=== PATIENT | male | born 1965 | race Caucasian/White ===

== ENCOUNTER 2016-09-18 17:40 | Emergency (ER) | payer SELFPAY ==
[2016-09-18 17:49] VITALS: BP 135/67; PULSE 62; TEMP 98; BMI 27.1
[2016-09-18] MEDS ORDERED: PANTOPRAZOLE SODIUM 40 MG in SODIUM CHLORIDE 100 ML IVPB ONE (20:56)
[2016-09-18] MEDS ORDERED: FAMOTIDINE 20 MG/50 ML IVPB 50 ML IVPB ONE ×2 (20:56→21:15)
[2016-09-18] MEDS ORDERED: SODIUM CHLORIDE 0.9% 1000 ML INFUS.BAG IV ONE (20:56)
--- NOTE | 2016-09-18 21:10 | PDOC ---
History of Present Illness - General Chief Complaint: Pain Stated Complaint: ABDOMINAL PAIN Time Seen by Provider: 09/18/16 20:36 - History of Present Illness Initial Comments: 09/18/16 20:57 CHIEF COMPLAINT: abdominal pain HISTORY OF PRESENT ILLNESS: 51 yo M with hx of GERD presents to ED with intermittent abdominal pain x 2 weeks. Patient states that he having epigastric discomfort that "is there one day, and gone the other" and has been taking TUMS and Mylanta almost daily with no relief. He denies any nausea or vomiting but states that "I drank some seltzer water and all that did was give me diarrhea." He reports only one episode of diarrhea this morning, denies any blood in stool. He states that he was here "a few years ago for the same type of pain, the doctor gave me pills for a couple weeks or something and it really made it better." Patient denies fever, chills, shortness of breath, chest pain, palpitations. No recent travel or sick contacts. PAST MEDICAL HISTORY: Denies past medical history FAMILY HISTORY: Denies SOCIAL HISTORY: Current smoker, 3-4 cigarettes daily. Denies alcohol, illicit drug use. SURGICAL HISTORY: Denies ALLERGIES: No known drug allergies REVIEW OF SYSTEMS General/Constitutional: Denies fever or chills. Denies weakness, weight change. HEENT: Denies change in vision. Denies ear pain or discharge. Denies sore throat. Cardiovascular: Denies chest pain or shortness of breath. Respiratory: Denies cough, wheezing, or hemoptysis. Gastrointestinal: Intermittent epigastric discomfort x 2 weeks, one episode of diarrhea today. Denies nausea, vomiting, constipation. Denies rectal bleeding. Genitourinary: Denies dysuria, frequency, or change in urination. Musculoskeletal: Denies joint or muscle swelling or pain. Denies neck or back pain. Skin: Denies rash or easy bruising. PHYSICAL EXAM General Appearance: Well-appearing, appropriately dressed. No apparent distress. HEENT: EOMI, PERRLA, normal voice. No conjunctival pallor. No photophobia, scleral icterus. Respiratory/Chest: Lungs CTAB. Cardiovascular: RRR. S1, S2. Gastrointestinal/Abdominal: Normal bowel sounds. Abdomen soft, non-distended. No tenderness or rebound tenderness. No organomegaly, pulsatile mass, guarding , hernia, hepatomegaly, splenomegaly. Musculoskeletal/Extremities: Normal inspection. FROM of all extremities, normal capillary refill. Pelvis Stable. No CVA tenderness. No tenderness to extremities, pedal edema, swelling, erythema or deformity. Integumentary: Appropriate color, dry, warm. 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 Fully oriented, alert. Appropriate mood/affect. Motor strength 5/5. No appreciable EOM palsy, facial droop or sensory deficit. Past History - Past Medical History Allergies/Adverse Reactions: Allergies Allergy/AdvReac Type Severity Reaction Status Date / Time No Known Allergies Allergy Verified 09/18/16 17:49 Home Medications: Ambulatory Orders No Home Medications 0 dose .ROUTE UTDICT 03/04/13 Pantoprazole Sodium [Protonix -] 40 mg PO ONCE #20 tablet.ec 09/18/16 Other medical history: denies - Psycho/Social/Smoking Cessation Hx Suicidal Ideation: No Smoking Status: Yes Smoking History: Never smoked Number of Cigarettes Smoked Daily: 3 Information on smoking cessation initiated: No Hx Alcohol Use: No Drug/Substance Use Hx: No Substance Use Type: None *Physical Exam - Vital Signs Last Vital Signs Temp Pulse Resp BP Pulse Ox 98 F 62 19 135/67 100 09/18/16 17:47 09/18/16 17:47 09/18/16 17:47 09/18/16 17:47 09/18/16 17:47 Medical Decision Making - Medical Decision Making 09/18/16 21:10 51 yo M with hx of GERD presents to ED with intermittent abdominal discomfort x 2 weeks. -IVF, Pepcid, Protonix Will reassess. *DC/Admit/Observation/Transfer Diagnosis at time of Disposition: Gastroesophageal reflux disease Qualifiers: Esophagitis presence: esophagitis presence not specified Qualified Code(s): K21.9 - Gastro-esophageal reflux disease without esophagitis - Discharge Dispostion Disposition: HOME Condition at time of disposition: Stable Admit: No - Prescriptions Prescriptions: Pantoprazole Sodium [Protonix -] 40 mg PO ONCE #20 tablet.ec - Referrals Referrals: Steven Barnes MD [Staff Physician] - - Patient Instructions Printed Discharge Instructions: DI for Gastroesophageal Reflux Disease (GERD) Additional Instructions: As discussed, please take medication as prescribed and follow up with the mathematics professor if symptoms persist past 5-7 days. If you experience any worsening abdominal pain, vomiting, diarrhea, fever, chills, or any new or worsening symptoms, please return to the ER.
[2016-09-18] MEDS ORDERED: PANTOPRAZOLE SODIUM 100 ML IVPB ONE (21:15)
== END 2016-09-18 23:14 | disposition home or self-care (01) ==
LOC: JER 17:40
PROC: 3E033GC Introduction of Other Therapeutic Substance into Peripheral Vein, Percutaneous Approach (ICD-10-PCS; principal; 2016-09-18)
PROC: 3E033GC Introduction of Other Therapeutic Substance into Peripheral Vein, Percutaneous Approach (ICD-10-PCS; 2016-09-18)
DX: K21.9 Gastro-esophageal reflux disease without esophagitis (principal)
CPT/HCPCS: 99283-25

== ENCOUNTER 2017-01-16 17:32 | Emergency (ER) | payer SELFPAY ==
[2017-01-16 17:39] VITALS: BP 133/62; PULSE 63; TEMP 97.9; BMI 25.2
[2017-01-16] MEDS ORDERED: FAMOTIDINE 20 MG/50 ML IVPB 50 ML IVPB ONE ×2 (19:30→20:04)
[2017-01-16] MEDS ORDERED: SODIUM CHLORIDE 0.9% 1000 ML INFUS.BAG IV ONE (19:31)
[2017-01-16] MEDS ORDERED: PANTOPRAZOLE SODIUM 40 MG in SODIUM CHLORIDE 100 ML IVPB ONE (19:31)
--- NOTE | 2017-01-16 19:39 | PDOC ---
History of Present Illness - General Chief Complaint: Pain Stated Complaint: ABD PAIN Time Seen by Provider: 01/16/17 19:03 History Source: Patient Exam Limitations: No Limitations - History of Present Illness Initial Comments: 01/16/17 19:36 The patient is a 51M with no PMH who presents with 4 days of abdominal pain. The pain is in his RUQ and he describes it as stabbing pain. It has been constant and worsening and does not radiate anywhere. The pain feels better with foods. He tried taking mylanta but states that it only made him have diarrhea. He states that he takes tums and it helps but the pain comes back. He does not drink. He has no PCP. Surg: none All: none Soc: quit smoking, does not drink, no drugs LBM: 4 days ago Past History - Past Medical History Allergies/Adverse Reactions: Allergies Allergy/AdvReac Type Severity Reaction Status Date / Time No Known Allergies Allergy Verified 01/16/17 17:34 Home Medications: Ambulatory Orders No Home Medications 0 dose .ROUTE UTDICT 03/04/13 Pantoprazole Sodium [Protonix -] 40 mg PO ONCE #20 tablet.ec 01/16/17 Other medical history: none - Psycho/Social/Smoking Cessation Hx Anxiety: No Suicidal Ideation: No Smoking Status: Yes Smoking History: Current every day smoker Have you smoked in the past 12 months: Yes Number of Cigarettes Smoked Daily: 3 Information on smoking cessation initiated: Yes 'Breaking Loose' booklet given: 01/16/17 Hx Alcohol Use: No Drug/Substance Use Hx: No Substance Use Type: None Review of Systems - Review of Systems Able to Perform ROS?: Yes Is the patient limited Polish proficient: No Constitutional: No: Chills, Fever Respiratory: No: Shortness of Breath Cardiac (ROS): No: Chest Pain ABD/GI: Yes: Constipated, Indigestion. No: Diarrhea, Nausea, Vomiting : No: Burning, Dysuria *Physical Exam - Vital Signs Last Vital Signs Temp Pulse Resp BP Pulse Ox 97.9 F 63 18 133/62 100 01/16/17 17:34 01/16/17 17:34 01/16/17 17:34 01/16/17 17:34 01/16/17 17:34 - Physical Exam General Appearance: Yes: Nourished, Appropriately Dressed HEENT: positive: Normal Voice, Hearing Grossly Normal Respiratory/Chest: positive: Lungs Clear, Normal Breath Sounds. negative: Chest Tender, Respiratory Distress, Accessory Muscle Use, Labored Respiration Cardiovascular: positive: Regular Rhythm, Regular Rate, S1, S2. negative: Diastolic Murmur, Systolic Murmur Gastrointestinal/Abdominal: positive: Tender (RUQ), Flat, Soft, Guarding (in RUQ ). negative: Decreased BS, Protuberent, Distended, Rebound Musculoskeletal: negative: CVA Tenderness (R), CVA Tenderness (L) Integumentary: positive: Dry, Warm. negative: Clammy, Swelling Neurologic: positive: Alert, Normal Mood/Affect, Motor Strength 10/04 ED Treatment Course - LABORATORY CBC & Chemistry Diagram: 01/16/17 20:00 01/16/17 20:00 - RADIOLOGY Radiology Studies Ordered: Category Date Time Status ABDOMEN US -LIMITED [US] Stat Ultrasound 01/16/17 19:32 Ordered Medical Decision Making - Medical Decision Making 01/16/17 19:38 The patient is a 51M with no PMH who presents to the ED with 4 days of abdominal pain. I will give him IV protonix, pepcid, and IV fluids and reassess the patient. I will also do a RUQ US scan. 01/16/17 22:28 All labs WNL. Patient is complaining of mild pain in RUQ. Pending RUQ U/S results. *DC/Admit/Observation/Transfer Diagnosis at time of Disposition: GERD (gastroesophageal reflux disease) - Discharge Dispostion Disposition: HOME Condition at time of disposition: Stable - Prescriptions Prescriptions: Pantoprazole Sodium [Protonix -] 40 mg PO ONCE #20 tablet.ec - Referrals Referrals: Torsten Greenfield DO [Staff Physician] - Lourdes Ordonez MD [Staff Physician] - - Patient Instructions Printed Discharge Instructions: DI for Gastroesophageal Reflux Disease (GERD), GERD Diet - Attestations Physician Attestion: 01/20/17 07:37 I, Dr. Refugio Begum, attest that this document has been prepared under my direction and personally reviewed by me in its entirety. I further attest, that it accurately reflects all work, treatment, procedures and medical decision -making performed by me.
--- NOTE | 2017-01-16 19:48 | PDOC ---
Attending Attestation - Resident Resident Name: Refugio Begum - ED Attending Attestation I have performed the following: I have examined & evaluated the patient, The case was reviewed & discussed with the resident, I agree w/resident's findings & plan, Exceptions are as noted - HPI HPI: 01/20/17 19:18 epigastric pain that is very similar to what he has had in the past. - Physicial Exam PE: 01/16/17 19:47 *Physical Exam General Appearance: Yes: Appropriately Dressed. No: Apparent Distress, Intoxicated HEENT: positive: EOMI, APURVA, Normal ENT Inspection, Normal Voice, TMs Normal, Pharynx Normal. negative: Pale Conjunctivae, Photophobia, Scleral Icterus (R), Scleral Icterus (L) Neck: positive: Trachea midline, Normal Thyroid, Supple. negative: Tender, Rigid, Carotid bruit, Stridor, Lymphadenopathy (R), Lymphadenopathy (L), Thyromegaly Respiratory/Chest: positive: Lungs Clear, Normal Breath Sounds. negative: Chest Tender, Respiratory Distress, Accessory Muscle Use, Labored Respiration, RES, Crackles, Rales, Rhonchi, Stridor, Wheezing, Dullness Cardiovascular: positive: Regular Rhythm, Regular Rate, S1, S2. negative: Edema , JVD, Murmur, Bradycardia, Tachycardia Vascular Pulses: Dorsalis-Pedis (R): 2+, Doralis-Pedis (L): 2+ Gastrointestinal/Abdominal: positive: mild RUQ tendernes, no triplett's no rebound or guard. Normal Bowel Sounds, Flat, Soft. negative: Organomegaly, Pulsatile Mass, Increased Bowel Sounds, Decreased BS, Distended, Guarding, Rebound, Hernia, Hepatomegaly, Spleenomegaly Lymphatic: negative: Adenopathy, Tenderness Musculoskeletal: positive: Normal Inspection. negative: CVA Tenderness, Decreased Range of Motion Extremity: positive: Normal Capillary Refill, Normal Inspection, Normal Range of Motion, Pelvis Stable. negative: Tender, Pedal Edema, Swelling, Erythema Integumentary: positive: Normal Color, Dry, Warm. 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 negative: EOM Palsy, Facial Droop, Sensory Deficit - Medical Decision Making 01/16/17 23:25 Labs and US all negative. Pt to be discharged and follow up with GI. Discharge Disposition - Diagnosis GERD (gastroesophageal reflux disease) - Discharge Dispostion Disposition: HOME Condition at time of disposition: Stable Admit: No - Prescriptions Prescriptions: Pantoprazole Sodium [Protonix -] 40 mg PO ONCE #20 tablet.ec - Referrals Referrals: Torsten Greenfield DO [Staff Physician] - Lourdes Ordonez MD [Staff Physician] - - Patient Instructions Printed Discharge Instructions: GERD Diet, DI for Gastroesophageal Reflux Disease (GERD) - Post Discharge Activity
[2017-01-16] MEDS ORDERED: PANTOPRAZOLE SODIUM 100 ML IVPB ONE (20:04)
[2017-01-16 20:08] LABS: BASOPHIL 0.9 % (0-2.0); EOSINOPHIL 3.9 % (0-4.5); MCH 28.8 pg (25.7-33.7); MCHC 33.4 g/dl (32.0-35.9); MEAN CELL VOLUME 86.1 fl (80-96); MEAN PLT VOLUME 8.5 fl (7.5-11.1); NEUTROPHILS 57.5 % (42.8-82.8); PLATELET COUNT 219 K/MM3 (134-434); RDW 13.8 % (11.9-15.9); WHITE BLOOD COUNT 7.3 K/mm3 (4.0-10.0)
[2017-01-16 20:41] LABS: ALBUMIN 3.4 g/dl (3.4-5.0); ANION GAP 6 (8-16); BILIRUBIN,TOTAL 0.3 mg/dL (0.2-1.0); CALCIUM 8.9 mg/dL (8.5-10.1); CO2 29 mmol/L (21-32); CREATININE 0.9 mg/dL (0.7-1.3); GLUCOSE,RANDOM 95 mg/dL (74-106); SGOT/AST 9 U/L (15-37); SGPT/ALT 16 U/L (12-78); TOT PROT 6.2 g/dl (6.4-8.2)
[2017-01-16 20:42] LABS: ALK PHOS 61 U/L (45-117)
== END 2017-01-16 23:33 | disposition home or self-care (01) ==
LOC: JER 17:32
PROC: 3E033GC Introduction of Other Therapeutic Substance into Peripheral Vein, Percutaneous Approach (ICD-10-PCS; principal; 2017-01-16)
PROC: 3E0337Z Introduction of Electrolytic and Water Balance Substance into Peripheral Vein, Percutaneous Approach (ICD-10-PCS; 2017-01-16)
DX: K21.9 Gastro-esophageal reflux disease without esophagitis (principal); F17.210 Nicotine dependence, cigarettes, uncomplicated
CPT/HCPCS: 36415; 76705-TC; 80053; 83690; 85025; 99282-25

== ENCOUNTER 2021-04-14 08:03 | Emergency (ER) | payer SELFPAY ==
[2021-04-14 08:19] VITALS: BP 120/75; PULSE 72; TEMP 97.6; BMI 27.3
[2021-04-14] MEDS ORDERED: SODIUM CHLORIDE 1,000 ML IV STA (08:53)
[2021-04-14] MEDS ORDERED: MAG HYDROX/AL HYDROX/SIMETH 30 ML UNIT-DOSE CUP PO ONE (08:54)
[2021-04-14] MEDS ORDERED: MAG HYDROX/AL HYDROX/SIMETH 30 ML UNIT-DOSE CUP ONE (09:38)
[2021-04-14 10:05] LABS: EOS % 7.5 % (0-4.5); HEMATOCRIT 41.6 % (35.4-49); HEMOGLOBIN 13.9 GM/dL (11.7-16.9); LYMPH % 41.5 % (8-40); MCHC 33.4 g/dl (32.0-35.9); MEAN CELL VOLUME 86.8 fl (80-96); MONO % 7.1 % (3.8-10.2); NEUT % 42.9 % (42.8-82.8); PLATELET COUNT 280 10^3/uL (134-434); RDW 13.6 % (11.9-15.9); WHITE BLOOD COUNT 5.4 K/mm3 (4.0-10.0)
[2021-04-14 10:09] LABS: PH,URINE 6.5 (5.0-8.0); URINE APPEARANCE CLEAR; URINE BILIRUBIN NEGATIVE (NEGATIVE); URINE COLOR YELLOW; URINE GLUCOSE (UA) NEGATIVE (NEGATIVE); URINE KETONE TRACE (NEGATIVE); URINE LEUK ESTERASE NEGATIVE (NEGATIVE); URINE NITRITE NEGATIVE (NEGATIVE); URINE PROTEIN TRACE (NEGATIVE)
[2021-04-14 10:27] LABS: CHLORIDE 109 mmol/L (98-107); SODIUM 141 mmol/L (136-145)
[2021-04-14 10:29] LABS: CALCIUM 9.1 mg/dL (8.5-10.1)
[2021-04-14 10:30] LABS: ALBUMIN 3.7 g/dl (3.4-5.0); ANION GAP 4 MMOL/L (8-16); BLOOD UREA NITROGEN 17.5 mg/dL (7-18); CO2 28 mmol/L (21-32); GLUCOSE,RANDOM 89 mg/dL (74-106)
[2021-04-14 10:33] LABS: CREATININE 0.9 mg/dL (0.55-1.3); SGOT/AST 13 U/L (15-37); SGPT/ALT 18 U/L (13-61)
[2021-04-14 10:34] LABS: BILIRUBIN,TOTAL 0.4 mg/dL (0.2-1)
[2021-04-14 10:35] LABS: ALK PHOS 67 U/L (45-117)
== END 2021-04-14 13:00 | disposition home or self-care (01) ==
LOC: JER 08:03
PROC: 3E0337Z Introduction of Electrolytic and Water Balance Substance into Peripheral Vein, Percutaneous Approach (ICD-10-PCS; principal; 2021-04-14)
DX: R14.0 Abdominal distension (gaseous) (principal); R10.9 Unspecified abdominal pain
CPT/HCPCS: 36415; 80053; 81003; 82550; 84484; 85025; 87086; 93005; 93010; 99284-25

== ENCOUNTER 2022-01-24 20:59 | Emergency (ER) | payer SELFPAY ==
[2022-01-24 21:18] VITALS: BP 135/76; PULSE 72; RESP 20; TEMP 98.3; BMI 26.7
[2022-01-24] MEDS ORDERED: ACETAMINOPHEN 1000 MG/100 ML BAG IVPB ONE (21:58)
[2022-01-24] MEDS ORDERED: FAMOTIDINE 20 MG/50 ML IVPB 20 MG/50 ML MG IVPB ONE ×2 (21:58→22:07)
[2022-01-24] MEDS ORDERED: MAG HYDROX/AL HYDROX/SIMETH -MYLANTA- ORAL SUSPENSION PO ONE (21:58)
[2022-01-24] MEDS ORDERED: ACETAMINOPHEN INJECTION 100 ML IVPB ONE (22:07)
[2022-01-24] MEDS ORDERED: MAG HYDROX/AL HYDROX/SIMETH 30 ML UNIT-DOSE CUP ONE (22:07)
[2022-01-24 22:46] LABS: BASO % 1.1 % (0-2.0); EOS % 8.1 % (0-4.5); HEMATOCRIT 40.2 % (35.4-49); HEMOGLOBIN 13.3 GM/dL (11.7-16.9); LYMPH % 38.2 % (8-40); MCH 28.7 pg (25.7-33.7); MEAN PLT VOLUME 8.5 fl (7.5-11.1); MONO % 8.2 % (3.8-10.2); NEUT % 44.4 % (42.8-82.8); PLATELET COUNT 254 10^3/uL (134-434); RBC 4.63 M/mm3 (4.00-5.60); RDW 13.3 % (11.9-15.9); WHITE BLOOD COUNT 6.3 K/mm3 (4.0-10.0)
[2022-01-24 23:14] LABS: ALBUMIN 3.4 g/dl (3.4-5.0); BLOOD UREA NITROGEN 23.2 mg/dL (7-18)
[2022-01-24 23:16] LABS: CREATININE 0.9 mg/dL (0.55-1.3)
[2022-01-24 23:18] LABS: BILIRUBIN,TOTAL 0.2 mg/dL (0.2-1); TOT PROT 6.7 g/dl (6.4-8.2)
== END 2022-01-25 01:39 | disposition home or self-care (01) ==
LOC: JER 20:59
PROC: 3E0333Z Introduction of Anti-inflammatory into Peripheral Vein, Percutaneous Approach (ICD-10-PCS; principal; 2022-01-24)
PROC: 3E033GC Introduction of Other Therapeutic Substance into Peripheral Vein, Percutaneous Approach (ICD-10-PCS; 2022-01-24)
DX: R10.13 Epigastric pain (principal)
CPT/HCPCS: 36415; 80053; 83690; 84484; 85025; 93005; 93010; 99284-25

== ENCOUNTER 2022-02-28 20:52 | Emergency (ER) | payer SELFPAY ==
[2022-02-28 20:56] VITALS: BP 120/69; PULSE 78; RESP 18; TEMP 97.8; BMI 26.6
[2022-02-28] MEDS ORDERED: MAG HYDROX/AL HYDROX/SIMETH 30 ML UNIT-DOSE CUP PO ONE (22:10)
[2022-02-28] MEDS ORDERED: FAMOTIDINE 20 MG TABLET PO ONE (22:10)
[2022-02-28] MEDS ORDERED: FAMOTIDINE 20 MG TABLET ONE (22:38)
[2022-02-28] MEDS ORDERED: MAG HYDROX/AL HYDROX/SIMETH 30 ML UNIT-DOSE CUP ONE (22:38)
[2022-02-28] MEDS ORDERED: ACETAMINOPHEN 1000 MG/100 ML BAG IVPB ONE (23:06)
[2022-02-28] MEDS ORDERED: SODIUM CHLORIDE 0.9% 500 ML INFUS.BAG IV ONE (23:07)
[2022-03-01] MEDS ORDERED: ACETAMINOPHEN INJECTION 100 ML IVPB ONE
[2022-03-01 00:10] LABS: BASO % 0.8 % (0-2.0); EOS % 5.3 % (0-4.5); HEMOGLOBIN 13.6 GM/dL (11.7-16.9); LYMPH % 33.7 % (8-40); MCH 28.8 pg (25.7-33.7); MCHC 33.1 g/dl (32.0-35.9); MEAN CELL VOLUME 86.9 fl (80-96); MEAN PLT VOLUME 8.3 fl (7.5-11.1); MONO % 7.2 % (3.8-10.2); PLATELET COUNT 291 10^3/uL (134-434); RBC 4.72 M/mm3 (4.00-5.60); RDW 13.4 % (11.9-15.9); WHITE BLOOD COUNT 7.5 K/mm3 (4.0-10.0)
[2022-03-01 00:32] LABS: ALBUMIN 3.8 g/dl (3.4-5.0); CALCIUM 9.4 mg/dL (8.5-10.1)
[2022-03-01 00:33] LABS: BLOOD UREA NITROGEN 13.1 mg/dL (7-18); MAGNESIUM 2.6 mg/dL (1.8-2.4)
[2022-03-01 00:35] LABS: CREATININE 0.9 mg/dL (0.55-1.3)
[2022-03-01 00:37] LABS: BILIRUBIN,TOTAL 0.5 mg/dL (0.2-1); TOT PROT 7.1 g/dl (6.4-8.2)
== END 2022-03-01 03:21 | disposition home or self-care (01) ==
LOC: JER 20:52
PROC: 3E033GC Introduction of Other Therapeutic Substance into Peripheral Vein, Percutaneous Approach (ICD-10-PCS; principal; 2022-02-28)
DX: R10.13 Epigastric pain (principal)
CPT/HCPCS: 36415; 71046-TC-FY; 76705-TC; 80053; 83690; 83735; 84484; 85025; 93005; 93010; 99285-25

== ENCOUNTER 2023-08-27 23:04 | Inpatient (IN) | payer SELFPAY ==
[2023-08-28] MEDS ORDERED: FAMOTIDINE 20 MG/50 ML IVPB 20 MG/50 ML MG IVPB ONE (00:09)
[2023-08-28] MEDS ORDERED: ACETAMINOPHEN INJECTION 100 ML IVPB ONE ×2 (00:09→05:21)
[2023-08-28] MEDS ORDERED: ONDANSETRON 4 MG/2 ML VIAL ONE (00:09)
[2023-08-28 00:36] LABS: BASO % 0.7 % (0-2.0); EOS % 1.5 % (0-4.5); HEMATOCRIT 43.2 % (35.4-49); HEMOGLOBIN 14.4 GM/dL (11.7-16.9); LYMPH % 13.7 % (8-40); MCH 28.8 pg (25.7-33.7); MCHC 33.4 g/dl (32.0-35.9); MEAN CELL VOLUME 86.4 fl (80-96); MEAN PLT VOLUME 8.3 fl (7.5-11.1); NEUT % 79.1 % (42.8-82.8); PLATELET COUNT 302 10^3/uL (134-434); WHITE BLOOD COUNT 9.7 K/mm3 (4.0-10.0)
[2023-08-28 00:44] LABS: INR 1.03 (0.83-1.09)
[2023-08-28 00:47] LABS: ACTIVATED PTT 29.3 SECONDS (25.2-36.5)
[2023-08-28] MEDS: ACETAMINOPHEN 1000 MG/100 ML BAG IVPB ONE ×2 (00:53→06:00)
[2023-08-28] MEDS: LACTATED RINGERS SOLUTION 1000 ML INFUS.BAG IV ONE ×2 (00:53→01:49)
[2023-08-28] MEDS: ONDANSETRON 4 MG/2 ML VIAL IVPUSH ONE (00:54)
[2023-08-28] MEDS: FAMOTIDINE 20 MG/50 ML IVPB 20 MG/50 ML MG IVPB ONE (00:54)
[2023-08-28 00:56] LABS: POTASSIUM 3.8 mmol/L (3.5-5.1)
[2023-08-28 00:58] LABS: ALBUMIN 3.8 g/dl (3.4-5.0); CALCIUM 9.4 mg/dL (8.5-10.1)
[2023-08-28 01:01] LABS: CREATININE 0.8 mg/dL (0.55-1.3)
[2023-08-28 01:03] LABS: BILIRUBIN,TOTAL 0.3 mg/dL (0.2-1); TOT PROT 7.1 g/dl (6.4-8.2)
[2023-08-28] MEDS ORDERED: morphine SULFATE 4 MG/ML VIAL ONE (01:05)
[2023-08-28] MEDS ORDERED: PIPERACILLIN/TAZOB 4.5 GM 4.5 GM/100 ML BAG IVPB ONE (01:05)
[2023-08-28] MEDS: PIPERACILLIN/TAZOB 4.5 GM 4.5 GM in DEXTROSE 5%-WATER 100 ML IVPB ONE (01:15)
[2023-08-28] MEDS: morphine CARPU-JECT 2 MG/1 ML DISP.SYRIN IVPUSH ONE (01:15)
[2023-08-28] MEDS ORDERED: HYDROmorphone HCl 2 MG/ML VIAL ONE (01:51)
[2023-08-28] MEDS: HYDROmorphone HCl 2 MG/ML VIAL IVPUSH ONE (01:54)
[2023-08-28] MEDS ORDERED: FENTANYL CITRATE/PF 50 MCG/ML VIAL ONE (02:25)
[2023-08-28] MEDS ORDERED: PROPOFOL 20 ML ONE (02:25)
[2023-08-28] MEDS ORDERED: SUCCINYLCHOLINE CHLORIDE 200 MG/10 ML SYRINGE ONE (02:26)
[2023-08-28] MEDS ORDERED: MIDAZOLAM HCL 2 MG/2 ML SINGLE DOSE VIAL ONE (02:47)
[2023-08-28] MEDS ORDERED: ROCURONIUM BROMIDE 50 MG/5 ML SYRINGE ONE (03:00)
[2023-08-28] MEDS ORDERED: BUPIVACAINE HCL/PF 0.25% (2.5MG/ML) 10 ML VIAL ONE (04:23)
[2023-08-28] MEDS ORDERED: SUGAMMADEX SODIUM 200 MG/2 ML VIAL ONE (04:31)
[2023-08-28] MEDS ORDERED: ACETAMINOPHEN 1000 MG/100 ML BAG IVPB PRN (04:34)
[2023-08-28] MEDS ORDERED: ONDANSETRON 4 MG/2 ML VIAL IVPUSH PRN (04:55)
[2023-08-28] MEDS ORDERED: morphine SULFATE 4 MG/ML VIAL IVPUSH PRN (04:57)
[2023-08-28] MEDS: SODIUM CHLORIDE 1,000 ML IV SCH ×2 (06:47→06:59)
[2023-08-28] MEDS: LACTATED RINGERS SOLUTION 1,000 ML IV SCH (06:59)
[2023-08-28] MEDS: PIPERACILLIN/TAZOB 3.375 GM 3.375 GM in DEXTROSE 5%-WATER - 50 ML IVPB SCH ×2 (06:59→09:39)
[2023-08-28] MEDS: PANTOPRAZOLE SODIUM 40 MG VIAL IVPUSH SCH (09:39)
[2023-08-28] MEDS ORDERED: PANTOPRAZOLE SODIUM 40 MG VIAL IVPUSH SCH (10:00)
[2023-08-28] MEDS ORDERED: HEPARIN NA (PORCINE) 5,000 UNITS/ML 1ML VIAL SQ SCH (10:00)
[2023-08-28] MEDS: THIAMINE HCL 200 MG/2 ML VIAL IVPB SCH (10:56)
[2023-08-28 11:27] VITALS: BMI 26.9
[2023-08-28] MEDS: ACETAMINOPHEN 1000 MG/100 ML BAG IVPB SCH (12:38)
[2023-08-28 13:15] LABS: BASO % 0.1 % (0-2.0); HEMATOCRIT 37.2 % (35.4-49); HEMOGLOBIN 12.1 GM/dL (11.7-16.9); LYMPH % 6.8 % (8-40); MCH 28.3 pg (25.7-33.7); MCHC 32.4 g/dl (32.0-35.9); MEAN CELL VOLUME 87.3 fl (80-96); MEAN PLT VOLUME 8.8 fl (7.5-11.1); MONO % 6.2 % (3.8-10.2); NEUT % 86.9 % (42.8-82.8); PLATELET COUNT 239 10^3/uL (134-434); RBC 4.27 M/mm3 (4.00-5.60); RDW 13.7 % (11.9-15.9); WHITE BLOOD COUNT 11.3 K/mm3 (4.0-10.0)
[2023-08-28 13:32] LABS: POTASSIUM 3.9 mmol/L (3.5-5.1)
[2023-08-28 13:36] LABS: BLOOD UREA NITROGEN 18.7 mg/dL (7-18); CALCIUM 8.1 mg/dL (8.5-10.1)
[2023-08-28 13:37] LABS: MAGNESIUM 1.6 mg/dL (1.8-2.4)
[2023-08-28] MEDS: HEPARIN NA (PORCINE) 5,000 UNITS/ML 1ML VIAL SQ SCH (13:37)
[2023-08-28] MEDS: AMINO ACIDS 4.25%/D5W 1,000 ML IV SCH (13:37)
[2023-08-28 13:39] LABS: PHOSPHOROUS 3.6 mg/dL (2.5-4.9)
[2023-08-28 13:40] LABS: CREATININE 0.9 mg/dL (0.55-1.3)
[2023-08-28 13:41] LABS: BILIRUBIN,TOTAL 0.7 mg/dL (0.2-1); TOT PROT 5.5 g/dl (6.4-8.2)
[2023-08-28 13:50] LABS: ALBUMIN 2.9 g/dl (3.4-5.0)
[2023-08-28] MEDS: morphine SULFATE 4 MG/ML VIAL IVPUSH PRN (14:31)
[2023-08-28] MEDS: SODIUM CHLORIDE 500 ML IV STA (16:27)
[2023-08-28] MEDS: PIPERACILLIN/TAZOB 4.5 GM 4.5 GM in DEXTROSE 5%-WATER 100 ML IVPB SCH (19:00)
[2023-08-28 23:01] LABS: METHADONE, UR NEGATIVE (NEGATIVE); URINE BARBITURATES NEGATIVE (NEGATIVE)
[2023-08-28 23:03] LABS: EPI CELLS 35 /uL (0-25.1); HYALINE CASTS 1 /uL (0-3.1); PH,URINE 5.5 (5.0-8.0); URINE APPEARANCE CLEAR; URINE BACTERIA 6 /uL (0-1359); URINE BILIRUBIN NEGATIVE (NEGATIVE); URINE COLOR DK YELLOW; URINE GLUCOSE (UA) NEGATIVE (NEGATIVE); URINE KETONE NEGATIVE (NEGATIVE); URINE LEUK ESTERASE NEGATIVE (NEGATIVE); URINE NITRITE NEGATIVE (NEGATIVE); URINE PROTEIN 1+ (NEGATIVE); URINE RBC 198 /uL (0-23.9)
[2023-08-28 23:10] LABS: COCAINE, UR POSITIVE (NEGATIVE); OPIATES, URI POSITIVE (NEGATIVE); PHENCYCLIDINE,URINE NEGATIVE (NEGATIVE); URINE AMPHETAMINES NEGATIVE (NEGATIVE); URINE BENZODIAZEPINES POSITIVE (NEGATIVE)
[2023-08-29 00:06] LABS: URINE WBC 125.6 /uL (0-25.8)
[2023-08-29 07:51] LABS: BASO % 0.7 % (0-2.0); EOS % 1.5 % (0-4.5); HEMATOCRIT 32.5 % (35.4-49); HEMOGLOBIN 10.7 GM/dL (11.7-16.9); LYMPH % 20.3 % (8-40); MCH 28.6 pg (25.7-33.7); MEAN CELL VOLUME 86.8 fl (80-96); MEAN PLT VOLUME 8.9 fl (7.5-11.1); NEUT % 70.5 % (42.8-82.8); PLATELET COUNT 206 10^3/uL (134-434); RBC 3.75 M/mm3 (4.00-5.60); RDW 13.7 % (11.9-15.9); WHITE BLOOD COUNT 8.7 K/mm3 (4.0-10.0)
[2023-08-29 08:12] LABS: POTASSIUM 3.4 mmol/L (3.5-5.1)
[2023-08-29 08:17] LABS: CALCIUM 7.6 mg/dL (8.5-10.1)
[2023-08-29 08:18] LABS: BLOOD UREA NITROGEN 18.1 mg/dL (7-18)
[2023-08-29 08:21] LABS: CREATININE 0.9 mg/dL (0.55-1.3)
[2023-08-29] MEDS ORDERED: PIPERACILLIN/TAZOB 3.375 GM 3.375 GM in DEXTROSE 5%-WATER - 50 ML IVPB SCH (09:00)
[2023-08-29] MEDS: KCL 10 MEQ IVPB 10 MEQ/100 ML INFUS.BAG IVPB SCH (11:22)
[2023-08-29 15:23] LABS: PHOSPHOROUS 2.6 mg/dL (2.5-4.9)
[2023-08-30 09:01] LABS: BASO % 0.7 % (0-2.0); EOS % 3.7 % (0-4.5); HEMATOCRIT 39.7 % (35.4-49); HEMOGLOBIN 13.5 GM/dL (11.7-16.9); LYMPH % 16.4 % (8-40); MCH 29.3 pg (25.7-33.7); MCHC 33.9 g/dl (32.0-35.9); MEAN CELL VOLUME 86.5 fl (80-96); MEAN PLT VOLUME 8.8 fl (7.5-11.1); MONO % 7.4 % (3.8-10.2); NEUT % 71.8 % (42.8-82.8); PLATELET COUNT 287 10^3/uL (134-434); RBC 4.59 M/mm3 (4.00-5.60); WHITE BLOOD COUNT 8.3 K/mm3 (4.0-10.0)
[2023-08-30 09:12] LABS: POTASSIUM 3.5 mmol/L (3.5-5.1)
[2023-08-30 09:23] LABS: CALCIUM 8.7 mg/dL (8.5-10.1)
[2023-08-30 09:24] LABS: BLOOD UREA NITROGEN 12.5 mg/dL (7-18)
[2023-08-30 09:27] LABS: CREATININE 0.8 mg/dL (0.55-1.3); PHOSPHOROUS 2.5 mg/dL (2.5-4.9)
[2023-08-30] MEDS: KETOROLAC TROMETHAMINE 15 MG/ML VIAL IVPUSH PRN (18:02)
[2023-08-31 08:29] LABS: BASO % 1.2 % (0-2.0); EOS % 7.5 % (0-4.5); HEMATOCRIT 38.1 % (35.4-49); HEMOGLOBIN 12.8 GM/dL (11.7-16.9); LYMPH % 19.6 % (8-40); MCH 29.2 pg (25.7-33.7); MCHC 33.6 g/dl (32.0-35.9); MEAN CELL VOLUME 86.7 fl (80-96); MEAN PLT VOLUME 8.7 fl (7.5-11.1); NEUT % 63.7 % (42.8-82.8); PLATELET COUNT 265 10^3/uL (134-434); RBC 4.39 M/mm3 (4.00-5.60); RDW 13.5 % (11.9-15.9); WHITE BLOOD COUNT 6.4 K/mm3 (4.0-10.0)
[2023-08-31 08:53] LABS: POTASSIUM 3.3 mmol/L (3.5-5.1)
[2023-08-31 09:00] LABS: CALCIUM 8.7 mg/dL (8.5-10.1)
[2023-08-31 09:01] LABS: BLOOD UREA NITROGEN 22.3 mg/dL (7-18); MAGNESIUM 2.1 mg/dL (1.8-2.4); PHOSPHOROUS 3.7 mg/dL (2.5-4.9)
[2023-08-31] MEDS ORDERED: IOHEXOL (OMNIPAQUE PO) 12 MG/ML - 500 ML BOTTLE PO ONE (09:02)
[2023-08-31] MEDS: AMINO ACIDS 4.25%/D5W 1,000 ML IV SCH (11:10)
[2023-08-31] MEDS: KCL 10 MEQ IVPB 10 MEQ/100 ML INFUS.BAG IVPB SCH ×2 (14:21→14:51)
[2023-08-31 14:51] VITALS: RESP 18
[2023-08-31] MEDS: FAT EMULSIONS 250 ML IV SCH (21:53)
[2023-08-31] MEDS ORDERED: FAT EMULSIONS 20% 250 ML PREMIX INFUS.BAG IV SCH (22:00)
[2023-09-01 12:38] LABS: BASO % 0.9 % (0-2.0); EOS % 9.8 % (0-4.5); HEMOGLOBIN 12.9 GM/dL (11.7-16.9); LYMPH % 22.5 % (8-40); MEAN CELL VOLUME 85.4 fl (80-96); MEAN PLT VOLUME 8.4 fl (7.5-11.1); MONO % 10.6 % (3.8-10.2); NEUT % 56.2 % (42.8-82.8); PLATELET COUNT 292 10^3/uL (134-434); RBC 4.45 M/mm3 (4.00-5.60); RDW 13.7 % (11.9-15.9); WHITE BLOOD COUNT 5.5 K/mm3 (4.0-10.0)
[2023-09-01 12:55] LABS: POTASSIUM 3.3 mmol/L (3.5-5.1)
[2023-09-01 13:01] LABS: BLOOD UREA NITROGEN 18.3 mg/dL (7-18); CALCIUM 8.6 mg/dL (8.5-10.1)
[2023-09-01 13:04] LABS: CREATININE 0.9 mg/dL (0.55-1.3); PHOSPHOROUS 3.4 mg/dL (2.5-4.9)
[2023-09-01] MEDS ORDERED: POTASSIUM CHLORIDE ORAL LIQUID 20 MEQ/15 ML PO ONE (13:30)
[2023-09-01] MEDS ORDERED: FAT EMULSION/OLIVE/SOY/PHOSPHO 250 ML IV SCH (13:33)
[2023-09-01 14:35] VITALS: BP 118/69; PULSE 67; TEMP 98.2
== END 2023-09-01 16:00 | disposition home or self-care (01) | DRG 222 ==
LOC: JER 23:04 → JERBED 08-28 02:03 → J8W 08-28 08:00
PROVIDERS: ADMIT Internal Medicine; ATTEND Nurse Practitioner Family
PROC: 0D9W30Z Drainage of Peritoneum with Drainage Device, Percutaneous Approach (ICD-10-PCS; 2023-08-28)
PROC: 3E1M38Z Irrigation of Peritoneal Cavity using Irrigating Substance, Percutaneous Approach (ICD-10-PCS; 2023-08-28)
PROC: 0DU747Z Supplement Stomach, Pylorus with Autologous Tissue Substitute, Percutaneous Endoscopic Approach (ICD-10-PCS; principal; 2023-08-28 02:01)
DX: K25.1 Acute gastric ulcer with perforation (principal); K65.9 Peritonitis, unspecified; F10.10 Alcohol abuse, uncomplicated; K21.9 Gastro-esophageal reflux disease without esophagitis; R11.2 Nausea with vomiting, unspecified; K76.89 Other specified diseases of liver; F17.210 Nicotine dependence, cigarettes, uncomplicated
CPT/HCPCS: 36415; 71045-TC-FY; 74150-TC; 74177-TC; 80048; 80053; 80061; 80307; 81003; 83605; 83690; 83735; 84100; 84484; 85025; 85610; 85730; 86850; 86900; 86901; 87070; 87075; 87205; 88305-TC; 93005; 93010; 94010; 94760; 97116-GP; 97162-GP; 99285-25; J0131; J1644; Q9967